=== PATIENT | male | born 1975 | race Caucasian/White ===

== ENCOUNTER → 2018-09-21 10:43 | Outpatient (CLI) | payer MEDICARE | END | disposition home or self-care (01) | LOC: D.US 10:43 | DX: I87.2 Venous insufficiency (chronic) (peripheral) (principal) ==

== ENCOUNTER 2018-11-04 06:17 | Day surgery (SDC) | payer MEDICARE ==
[~2018-11-04] VITALS: Ht 177.8 cm; Wt 122.5 kg
--- NOTE | ~2018-11-04 | OP ---
PATIENT NAME: JOSÉ MIGUEL JOHNSTON MEDICAL RECORD: [id number] :75 LOCATION:D.OPS ADMISSION DATE: SURGEON: KAM GRACIA MD DATE OF OPERATION: 11/04/2018 PREOPERATIVE DIAGNOSES: 1. Pathologic greater saphenous venous reflux, right lower extremity. 2. Pathologic lesser saphenous venous reflux, left lower extremity. 3. Symptomatic varicose veins of the bilateral lower extremities. POSTOPERATIVE DIAGNOSES: 1. Pathologic greater saphenous venous reflux, right lower extremity. 2. Pathologic lesser saphenous venous reflux, left lower extremity. 3. Symptomatic varicose veins of the bilateral lower extremities. PROCEDURES: 1. VNUS radiofrequency ablation of the right greater saphenous vein. A total of 47 cm of greater saphenous vein was treated. 2. VNUS radiofrequency ablation of the left lesser saphenous vein. A total of 22 cm was ablated. 3. Avulsion phlebectomies of bilateral lower extremities times 24. SURGEON: Kam Gracia MD CONTINUING EDUCATION SPECIALIST: None. BLOOD LOSS: Minimal. ESTIMATED BLOOD LOSS: 100 cc. ANESTHESIA: General. COMPLICATIONS: None. I saw the patient in the holding area. We discussed the upcoming operation. We discussed the possible risks. DESCRIPTION OF PROCEDURE: With the patient standing, I marked the varicose veins with a magic marker. I had the patient examined his lower extremities and he confirmed that all the varicose veins that could see were indeed marked. The patient was then conveyed to the operating room. He was positioned supine. General anesthesia was induced by the anesthesia staff. Both lower extremities were sterilely prepped and draped as well as both groins. Subcutaneous Lovenox was given to the patient to prevent a DVT. Under ultrasonographic guidance, I percutaneously accessed the right lower extremity greater saphenous vein at the ankle. I was able to advance a wire and then a dilator sheath. I tried to advance a small wire and was able to only advance to the middle one-third of the leg. I tried to advance the radiofrequency catheter over this and was unable to do so. I believe that the greater saphenous vein narrows at this point. I withdrew the radiofrequency catheter. Through the sheath, I injected a dilute foamed sclerosant. The sheath was then removed. Puncture site was closed with OPERATIVE REPORT [id number] JOSÉ MIGUEL JOHNSTON a 4-0 Vicryl Rapide suture. In the upper leg, I visualized the greater saphenous vein under ultrasonographic guidance. I punctured the greater saphenous vein in an antegrade fashion. A guidewire was advanced. Over the guidewire, a 7-Mozambican dilator sheath was advanced. The dilator and wire were removed. Through the sheath, I advanced the radiofrequency catheter. Under ultrasound, it was advanced to the saphenofemoral junction. I then placed the patient in Trendelenburg. I then examined the right groin again. There was no advancement of the radiofrequency catheter. He was still about 2 cm within the greater saphenous vein at the tip. I injected a crystalloid solution under ultrasonographic guidance around the vein to act as a heat sink in order to prevent a nerve injury. I then activated the radiofrequency catheter twice while applying pressure externally. I then pulled back 7 cm. With each 7 cm pullback, I activated the radiofrequency catheter again. I then removed the radiofrequency catheter and the sheath. The length treated is listed above. The puncture site was closed with 4-0 Vicryl Rapide suture. The accessible varicose veins that had been marked in both lower extremities were then treated. This was with avulsion phlebectomies. Small skin nicks were accomplished. Utilizing a phlebectomy hook, I performed an avulsion phlebectomies. There was no apparent nerve injury during this procedure. The patient was then flipped prone. Both lower extremities were sterilely prepped and draped. Under ultrasonographic guidance, I accessed the left lesser saphenous vein above the level of the ankle. A guidewire passed easily. A small skin jennifer was accomplished. A 7-[place]oz[place] dilator sheath was advanced. The dilator and wire were removed. The radiofrequency catheter was advanced. It was advanced to the saphenopopliteal junction. I then withdrew the radiofrequency catheter about 2 cm within the lesser saphenous vein. The patient was positioned in the Trendelenburg position. I confirmed that the tip of the catheter had not moved. Utilizing a crystalloid solution, I injected this crystalloid solution into the perivenular tissues in order to provide a heat sink and to prevent a nerve injury. While applying external pressure, the radiofrequency catheter was activated twice. With each 7 cm pullback, activated an additional time. The radiofrequency catheter and the sheath were then removed. The accessible posterior varicose veins were then treated with avulsion phlebectomies. Small skin nicks were accomplished. Utilizing phlebectomy hooks, avulsion phlebectomies were performed. The number of phlebectomies as listed above. The length of the lesser saphenous vein that was treated is listed above as well. A pressure dressing was then applied. The patient was then conveyed to the post-anesthesia care unit where he was in stable condition after extubation. He will be dismissed home on a narcotic analgesic. I will see him in my office on Thursday for dressing removal. At that time, we will plan to apply compression hose. 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 KAM GRACIA MD at 1522 CC: [id number] DICTATION DATE: 11/05/18 1517 [employer] INTERN: 11/05/[address] [facility] 11/04/18 [id number] [place] [address]
[~2018-11-04 06:17] MED LIST: MAXALT MLT10 MG/TAB PO; NAPROSYN500 MG PO; RITALIN LA20 MG PO; RITALIN10 MG PO
[2018-11-04 06:37] VITALS: BP 136/80; Ht 177.8 cm; Wt 122.5 kg
== END 2018-11-04 13:40 | disposition home or self-care (01) ==
LOC: D.OPS 06:17 → D.PAN 08:00 → D.OPS 08:00
DX: I87.2 Venous insufficiency (chronic) (peripheral) (principal); I83.893 Varicose veins of bilateral lower extremities with other complications; Z01.812 Encounter for preprocedural laboratory examination